=== PATIENT | female | born 1995 | race Caucasian/White ===

== ENCOUNTER 2024-08-04 10:24 | Day surgery (SDC) | payer OTHER ==
[~2024-08-04] VITALS: Ht 170.2 cm; Wt 91.8 kg
[~2024-08-04 10:24] MED LIST: CYCL5TAB4 PO
[2024-08-04] MEDS ORDERED: KETOROLAC 30 MG/ML 1ML VIAL As Ordered ONE (11:02)
[2024-08-04] MEDS ORDERED: propofoL 200 MG/20 ML VIAL As Ordered ONE (11:02)
[2024-08-04] MEDS ORDERED: ONDANSETRON 4MG 2ML VIAL As Ordered ONE (11:02)
[2024-08-04] MEDS ORDERED: LIDOCAINE 2% 100MG/5ML SDV (FOR ANES.) As Ordered ONE (11:02)
[2024-08-04] MEDS ORDERED: fentaNYL 100 MCG/2 ML INJECTION As Ordered ONE (11:06)
[2024-08-04] MEDS ORDERED: MIDAZOLAM INJ 2MG/2ML VIAL As Ordered ONE (11:06)
[2024-08-04] MEDS: ACETAMINOPHEN 500 MG TAB PO ONE (11:41)
[2024-08-04] MEDS: LR 1,000 ML IV SCH (11:42)
[2024-08-04] MEDS: SCOPOLAMINE 1MG TRANSDERMAL PATCH TOP ONE (11:42)
[2024-08-04] MEDS: IODINE STRONG SOLN 15ML BTL As Ordered ONE (12:02)
[2024-08-04] MEDS: SILVER NITRATE APPLICATOR (1 = QTY 10) As Ordered ONE (12:04)
[2024-08-04] MEDS ORDERED: ACETAMINOPHEN 1000MG/100ML IV BAG As Ordered ONE (12:30)
[2024-08-04] MEDS: LEVONORGESTREL 52MG (MIRENA) IUD As Ordered ONE (12:50)
[2024-08-04] MEDS: LIDOCAINE W/EPINEPHRINE 1% 20ML VIAL As Ordered ONE (12:55)
[2024-08-04] MEDS ORDERED: fentaNYL 100 MCG/2 ML INJECTION IV PRN (13:05)
[2024-08-04] MEDS ORDERED: ONDANSETRON 4MG 2ML VIAL IV PRN (13:05)
[2024-08-04] MEDS ORDERED: HYDROMORPHONE HCL 0.5 MG/ 0.5 ML SYRINGE IV PRN (13:05)
[2024-08-04] MEDS: oxyCODONE 5MG TAB PO PRN (13:17)
[2024-08-04 14:00] VITALS: BP 117/73; TEMP 97; O2SAT 99
== END 2024-08-04 14:16 | disposition home or self-care (01) ==
LOC: M SDC 10:24
PROVIDERS: ATTEND General Practice
DX: D06.9 Carcinoma in situ of cervix, unspecified (principal); R51.9 Headache, unspecified; Z79.899 Other long term (current) drug therapy; F17.200 Nicotine dependence, unspecified, uncomplicated
CPT/HCPCS: 36415; 57520; 81025; 86850; 86900; 86901; 88305; 88307; J0131; J1100; J1885; J2250; J2405; J3010; J7298